=== PATIENT | male | born 1980 ===

== ENCOUNTER → 2020-11-26 13:24 | Outpatient (BNVA) | payer OTHER, SELFPAY | PROVIDERS: PCP Internal Medicine; Visit Provider Internal Medicine Gastroenterology ==

== ENCOUNTER → 2021-06-24 10:05 | Outpatient (BNVA) | payer OTHER, SELFPAY | PROVIDERS: PCP Internal Medicine; Referring Provider Internal Medicine; Visit Provider Internal Medicine Gastroenterology | DX: R19.4 Change in bowel habit (principal); R13.10 Dysphagia, unspecified | CPT/HCPCS: 99212 ==

== ENCOUNTER 2021-07-16 21:49 | Emergency (ER) | payer OTHER, SELFPAY ==
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
[2021-07-16 21:51] VITALS: BP 138/80; PULSE 83; O2SAT 99
[2021-07-16 22:20] VITALS: BP 145/76; PULSE 86; RESP 18; TEMP 36.6; O2SAT 98; BMI 28.0
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
[2021-07-17] MEDS: Ketorolac Tromethamine 60 MG/2 ML VIAL IM (02:53)
[2021-07-17] MEDS: Cyclobenzaprine HCl 10 MG TABLET PO (03:11)
== END 2021-07-17 03:12 | disposition home or self-care (01) ==
PROVIDERS: Emergency Provider Emergency Medicine; PCP Internal Medicine
DX: S39.012A Strain of muscle, fascia and tendon of lower back, initial encounter (principal); S16.1XXA Strain of muscle, fascia and tendon at neck level, initial encounter; V43.52XA Car driver injured in collision with other type car in traffic accident, initial encounter; Y93.89 Activity, other specified; Y92.414 Local residential or business street as the place of occurrence of the external cause; Y99.8 Other external cause status
CPT/HCPCS: 72040; 72100; 96372; 99284; J1885

== ENCOUNTER → 2021-09-19 10:32 | Outpatient (BNVA) | payer OTHER, SELFPAY | PROVIDERS: PCP Internal Medicine; Visit Provider Surgery | DX: R13.10 Dysphagia, unspecified (principal); F17.210 Nicotine dependence, cigarettes, uncomplicated; Z79.899 Other long term (current) drug therapy; Z71.6 Tobacco abuse counseling | CPT/HCPCS: 99212 ==

== ENCOUNTER 2021-10-08 15:17 | Outpatient (REF) | payer OTHER, SELFPAY ==
--- NOTE | ~2021-10-08 | CT_ITS ---
EXAMINATION: CT CHEST WITHOUT CONTRAST CLINICAL INFORMATION: Dysphagia, unspecified COMPARISON: Chest CT 09/08/2016 TECHNIQUE: Multidetector volumetric CT imaging of the chest was done. Axial MIP volume rendering provided. Sagittal and coronal reformatted images were obtained. This CT examination was performed using dose optimization techniques as appropriate, variously including the following: *Automated exposure control *Adjustment of mA and/or kV according to patient size (this includes techniques or standardized protocols for targeted exams where dose is matched to indication/reason for exam; i.e. extremities or head) *Use of iterative reconstruction technique DLP: 175 mGy-cm FINDINGS: LUNGS: The lungs are clear with no evidence of inflammation or nodules. MEDIASTINUM: The mediastinum is normal. PLEURA: There is no pleural effusion. No pleural mass or thickening. AXILLA: No lymphadenopathy. UPPER ABDOMEN: Unremarkable. OSSEOUS STRUCTURES: Unremarkable. CT/CT chest wo con IMPRESSION: Unremarkable examination. Fleischner guidelines were followed.
== END 2021-10-08 15:18 | disposition home or self-care (01) ==
LOC: HO.CT 15:17
PROVIDERS: PCP Internal Medicine; Visit Provider Surgery
DX: R13.10 Dysphagia, unspecified (principal)
CPT/HCPCS: 71250

== ENCOUNTER → 2021-10-24 09:20 | Outpatient (BNVA) | payer OTHER, SELFPAY | PROVIDERS: PCP Internal Medicine; Visit Provider Surgery | DX: Z13.89 Encounter for screening for other disorder (principal) ==

== ENCOUNTER 2021-11-28 10:17 | Outpatient (REF) | payer OTHER, SELFPAY ==
--- NOTE | ~2021-11-28 | FL_ITS ---
EXAMINATION: FL BARIUM SWALLOW CLINICAL INFORMATION: Dysphagia COMPARISON: 07/27/2017 TECHNIQUE: Barium swallow examination is performed using fluoroscopic evaluation in addition to multiple fluoroscopic spot views. The patient is imaged both upright and prone and using both thick and thin sulfate along with effervescent granules. Fluoroscopy time: 1.2 minutes DAP: 6.907 Gycm2 Images: 73 FINDINGS: There is normal oral bolus control and transfer. Normal posterior tilt of the epiglottis with elevation of the hyoid. No cricopharyngeal abnormality. 13 mm barium tablet was swallowed without difficulty. This freely passed through the esophagus into the stomach without delay. The esophagus was normal in course, caliber, and contour. There was normal distensibility with no fixed segment of narrowing. No focal mucosal abnormality was identified. No significant esophageal dysmotility was observed. Contrast passed freely across the gastroesophageal junction into the stomach. There may be a tiny sliding hiatal hernia, though this may be within normal limits of function. Mild gastroesophageal reflux was observed. FL/FL barium swallow IMPRESSION: Normal appearance of the esophagus. There may be a tiny sliding hiatal hernia. Mild gastroesophageal reflux noted.
== END 2021-11-28 10:18 | disposition home or self-care (01) ==
LOC: HO.XRAY 10:17
PROVIDERS: Visit Provider Surgery
DX: R13.10 Dysphagia, unspecified (principal)
CPT/HCPCS: 74220

== ENCOUNTER → 2021-12-05 10:28 | Outpatient (BNVA) | payer OTHER, SELFPAY | PROVIDERS: PCP Internal Medicine; Visit Provider Surgery | DX: K22.0 Achalasia of cardia (principal) | CPT/HCPCS: 99212 ==

== ENCOUNTER 2022-02-04 20:41 | Emergency (ER) | payer OTHER, SELFPAY ==
--- NOTE | ~2022-02-04 | CT_ITS ---
EXAMINATION: CT CHEST WITH CONTRAST CT ABDOMEN AND PELVIS WITH CONTRAST CLINICAL INFORMATION: Abdominal pain and distention. 6 days postoperative. COMPARISON: 10/08/2021 and 09/11/2019 TECHNIQUE: Multidetector volumetric imaging was performed through the chest, abdomen and pelvis following the administration of 100 mL of Omnipaque 350 intravenous contrast. Sagittal and coronal reformatted images were obtained on the technologist's workstation. Axial MIP volume rendering provided. This CT examination was performed using dose optimization techniques as appropriate, variously including the following: *Automated exposure control *Adjustment of mA and/or kV according to patient size (this includes techniques or standardized protocols for targeted exams where dose is matched to indication/reason for exam; i.e. extremities or head) *Use of iterative reconstruction technique DLP: 902 mGy-cm. FINDINGS: CHEST: Lungs: The central airways are patent. Dependent atelectasis. No dense consolidation. No pleural effusion or pneumothorax. Mild paraseptal emphysema noted at the lung apices. Mediastinum: The heart is of normal size.There is gas seen within the mediastinum anteriorly, likely postoperative in nature. There is no pericardial effusion. Central vascular structures are unremarkable. No hilar or mediastinal lymphadenopathy. Mild wall thickening of the esophagus. Chest Wall/Axilla: No lymphadenopathy. No chest wall mass. ABDOMEN/PELVIS: Liver, Gallbladder, Biliary Tree: The liver is normal in size, shape, and attenuation. No biliary ductal dilatation. Multiple hypoattenuating lesions are again noted in the liver. The largest of these have peripheral nodular enhancement, consistent with the appearance of hemangiomas.. The gallbladder is unremarkable with no evidence of radiopaque gallstones, gallbladder wall thickening, or pericholecystic inflammatory changes. Pancreas: Unremarkable. Spleen: Unremarkable. Adrenal Glands: Unremarkable. Kidneys and Ureters: The kidneys are normal in size, shape, and attenuation. No hydronephrosis, hydroureter or calculi seen. No perinephric stranding. Simple cyst at the upper pole of the left kidney. No follow-up imaging recommended. Bladder: Unremarkable. Gastrointestinal Tract: The stomach is unremarkable. Normal caliber small bowel. No obstruction. No colonic wall thickening or inflammatory change. Fecalization of the distal ileum noted. This suggests slow transit. The appendix is unremarkable. Abdominal Wall: No hernia is demonstrated. Lymphovascular Structures: Lymph nodes: Normal. Vascular: Unremarkable. Pelvic Viscera: The prostate and seminal vesicles are unremarkable. OSSEOUS STRUCTURES: No suspicious sclerotic or lytic bone lesions are identified. Disc spacer at L5-S1. CT/CT abdomen pelvis w con IMPRESSION: 1. Postoperative changes in the chest with gas in the anterior mediastinum. No fluid collection. 2. No acute findings in the lungs. 3. No acute findings in the abdomen or pelvis. No inflammatory changes. No obstruction. The bowel is normal in caliber.
[2022-02-04 20:51] VITALS: BP 120/78; PULSE 92; O2SAT 96
[2022-02-04 21:00] VITALS: BP 121/86; PULSE 85; RESP 18; TEMP 36.8; O2SAT 98; BMI 28.0
[2022-02-04 23:55] LABS: MANUAL DIFF FLAG NO
[2022-02-04 23:57] LABS: Basophils Absolute Auto 0.1 X10*3/uL (0.0-0.2); Basophils Percent Auto 0.4 % (0-2); Eosinophils Absolute Auto 0.3 X10*3/uL (0.0-0.4); Eosinophils Percent Auto 2.7 % (0-4); Hematocrit 39.9 % (42.0-52.0); Hemoglobin 13.3 g/dl (14.0-18.0); Imm Gran Abs Auto 0.15 X10*3/uL (0.00-0.03); Imm Gran Pct Auto 1.3 % (0.0-0.4); Lymphocytes Absolute Auto 3.3 X10*3/uL (1.2-4.9); Lymphocytes Percent Auto 28.3 % (20-40); Mean Corpuscular HGB Conc 33.3 g/dl (31.0-36.0); Mean Corpuscular Hemoglobin 31.1 pg (27.0-33.0); Mean Corpuscular Volume 93.2 fL (80.0-98.0); Mean Platelet Volume 9.9 fL (9.4-12.4); Monocytes Absolute Auto 0.9 X10*3/uL (0.1-1.2); Monocytes Percent Auto 7.3 % (2-11); Platelet Count 294 X10*3/uL (160-400); Red Blood Count 4.28 X10*6/uL (4.60-5.80); Red Cell Distribution Width 13.3 % (11.0-16.0); White Blood Count 11.7 X10*3/uL (4.8-10.8)
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
[2022-02-05 00:07] VITALS: BP 119/77; PULSE 76; RESP 13; O2SAT 97
[2022-02-05] MEDS: ondansetron HCL 4 MG/2 ML VIAL IVPUSH (00:11)
[2022-02-05] MEDS: Morphine Sulfate 4 MG/ML CARTRIDGE IVPUSH (00:11)
[2022-02-05 00:13] LABS: Alanine Aminotransferase 64 U/L (0-40); Albumin Level 4.3 g/dL (3.5-5.0); Alkaline Phosphatase 71 U/L (39-117); Anion Gap 11 (12-20); Aspartate Amino Transferase 18 U/L (5-37); Bilirubin Total 0.3 mg/dL (0.0-1.0); Blood Urea Nitrogen 17 mg/dL (9-16); Calcium 9.4 mg/dL (8.4-10.2); Carbon Dioxide 28 mmol/L (22-29); Chloride 102 mmol/L (96-108); Creatinine Clr Calc Pharmacy 131.1; Estimated Glomerular Filt Rate > 60; Glucose Random 117 mg/dL (60-115); Potassium 4.4 mmol/L (3.3-5.1); Sodium 137 mmol/L (135-145); Total Protein 7.2 g/dL (6.5-8.0)
[2022-02-05 02:00] VITALS: BP 119/65; PULSE 67; RESP 14; TEMP 36.3; O2SAT 97
[2022-02-05] MEDS: iohexoL 350 MG/ML 100 ML INFUS..BTL 99 ML IV (02:10)
[2022-02-05 03:49] VITALS: BP 108/57; PULSE 54; RESP 12; O2SAT 95
== END 2022-02-05 04:05 | disposition home or self-care (01) ==
PROVIDERS: Emergency Provider Emergency Medicine
DX: S39.91XA Unspecified injury of abdomen, initial encounter (principal); S30.1XXA Contusion of abdominal wall, initial encounter; R14.0 Abdominal distension (gaseous); M54.6 Pain in thoracic spine; F17.200 Nicotine dependence, unspecified, uncomplicated; V43.52XA Car driver injured in collision with other type car in traffic accident, initial encounter; Y93.9 Activity, unspecified; Y92.410 Unspecified street and highway as the place of occurrence of the external cause; Y99.9 Unspecified external cause status; Z79.899 Other long term (current) drug therapy; Z71.6 Tobacco abuse counseling
CPT/HCPCS: 36415; 71260; 74177; 80053; 85025; 96374; 96375; 99284; J2270; J2405; Q9967

== ENCOUNTER 2022-08-19 09:08 | Outpatient (REF) | payer OTHER, SELFPAY ==
[2022-08-19 09:18] LABS: MANUAL DIFF FLAG NO
[2022-08-19 09:43] LABS: Basophils Absolute Auto 0.1 X10*3/uL (0.0-0.2); Eosinophils Absolute Auto 0.2 X10*3/uL (0.0-0.4); Eosinophils Percent Auto 3.1 % (0-4); Hematocrit 43.7 % (42.0-52.0); Hemoglobin 14.3 g/dl (14.0-18.0); Imm Gran Abs Auto 0.06 X10*3/uL (0.00-0.03); Imm Gran Pct Auto 0.8 % (0.0-0.4); Lymphocytes Absolute Auto 2.9 X10*3/uL (1.2-4.9); Lymphocytes Percent Auto 37.8 % (20-40); Mean Corpuscular HGB Conc 32.7 g/dl (31.0-36.0); Mean Corpuscular Hemoglobin 30.4 pg (27.0-33.0); Mean Corpuscular Volume 92.8 fL (80.0-98.0); Mean Platelet Volume 10.5 fL (9.4-12.4); Monocytes Absolute Auto 0.6 X10*3/uL (0.1-1.2); Monocytes Percent Auto 8.3 % (2-11); Neutrophils Absolute Auto 3.7 x10*3/uL (2.0-8.3); Platelet Count 292 X10*3/uL (160-400); Red Blood Count 4.71 X10*6/uL (4.60-5.80); Red Cell Distribution Width 13.2 % (11.0-16.0); White Blood Count 7.6 X10*3/uL (4.8-10.8)
[2022-08-19 09:50] LABS: Appearance Urine Clear; Color Urine Yellow; Glucose Urine UA Negative (Negative); Leukocyte Esterase Urine Negative (Negative); Nitrite Urine Negative (Negative); PH 5.5 (5.0-9.0); Specific Gravity - Urine 1.025 (1.005-1.025); Urine Blood Negative (Negative); Urine Ketones Negative (Negative); Urine Protein Negative (Neg-Trace)
[2022-08-19 10:24] LABS: Alanine Aminotransferase 30 U/L (0-40); Albumin Level 4.2 g/dL (3.5-5.0); Alkaline Phosphatase 67 U/L (39-117); Anion Gap 10 (12-20); Aspartate Amino Transferase 18 U/L (5-37); Bilirubin Total 0.3 mg/dL (0.0-1.0); Blood Urea Nitrogen 9 mg/dL (9-16); Calcium 9.5 mg/dL (8.4-10.2); Carbon Dioxide 31 mmol/L (22-29); Chloride 103 mmol/L (96-108); Cholesterol 207 mg/dL; Estimated Glomerular Filt Rate > 60; Glucose Fasting 120 mg/dL (60-99); HDL Cholesterol 34 mg/dL; LDL Cholesterol Calculated 133 mg/dl; Potassium 4.5 mmol/L (3.3-5.1); Sodium 139 mmol/L (135-145); Total Protein 6.9 g/dL (6.5-8.0); Triglycerides 200 mg/dL
[2022-08-19 10:41] LABS: TSH reflex Free T4 0.71 uIU/mL (0.32-4.0); Vitamin D 25-OH Total 16.3 ng/mL (>30)
== END 2022-08-19 09:09 | disposition home or self-care (01) ==
LOC: HO.LAB 09:08
PROVIDERS: PCP Internal Medicine; Visit Provider Internal Medicine
DX: K22.0 Achalasia of cardia (principal); R30.0 Dysuria; E78.00 Pure hypercholesterolemia, unspecified; E55.9 Vitamin D deficiency, unspecified
CPT/HCPCS: 36415; 80053; 80061; 81003; 82306; 84443; 85025

== ENCOUNTER 2023-04-17 22:15 | Emergency (ER) | payer OTHER, SELFPAY ==
[2023-04-17 22:31] VITALS: BP 132/60; PULSE 77; RESP 18; TEMP 36.8; O2SAT 95; BMI 24.4
--- NOTE | 2023-04-18 00:12 | MHC.EDTECH ---
patient blood drawn and sent to lab .
[2023-04-18 00:18] LABS: Hematocrit 40.6 % (42.0-52.0); Hemoglobin 13.6 g/dl (14.0-18.0); Mean Corpuscular HGB Conc 33.5 g/dl (31.0-36.0); Mean Corpuscular Hemoglobin 30.1 pg (27.0-33.0); Mean Corpuscular Volume 89.8 fL (80.0-98.0); Mean Platelet Volume 9.8 fL (9.4-12.4); Platelet Count 262 X10*3/uL (160-400); Red Blood Count 4.52 X10*6/uL (4.60-5.80); Red Cell Distribution Width 13.2 % (11.0-16.0); White Blood Count 9.3 X10*3/uL (4.8-10.8)
[2023-04-18 00:36] LABS: Alanine Aminotransferase 20 U/L (0-40); Albumin Level 4.3 g/dL (3.5-5.0); Alkaline Phosphatase 58 U/L (39-117); Anion Gap 14 (12-20); Aspartate Amino Transferase 18 U/L (5-37); Bilirubin Total 0.2 mg/dL (0.0-1.0); Blood Urea Nitrogen 14 mg/dL (9-16); Calcium 9.7 mg/dL (8.4-10.2); Carbon Dioxide 28 mmol/L (22-29); Chloride 102 mmol/L (96-108); Creatinine Clr Calc Pharmacy 108.1; Estimated Glomerular Filt Rate > 60; Glucose Random 120 mg/dL (60-115); Potassium 4.5 mmol/L (3.3-5.1); Sodium 139 mmol/L (135-145); Total Protein 7.1 g/dL (6.5-8.0)
[2023-04-18 01:44] VITALS: BP 137/68; PULSE 87; RESP 16; TEMP 36.9; O2SAT 98
[2023-04-18] MEDS: Lidocaine HCl 1 % MPF 5 ML VIAL INFILTRATI ×2 (03:34)
--- NOTE | 2023-04-18 03:35 | PC.NURSE ---
Lidocaine given by provider to wound site at bedside.
--- NOTE | 2023-04-18 03:58 | ED_ITS ---
HPI - Wound/Laceration General Chief Complaint: Wound/Laceration Stated Complaint: left finger laceration Time Seen by Provider: 04/18/23 03:29 Source: patient Mode of arrival: ambulatory Limitations: no limitations History of Present Illness HPI narrative: 42-year-old male who presents emergency department for evaluation of a laceration to the left 2nd PIP joint. The patient states that he was cutting a pumpkin, slipped and accidentally cut his finger. Patient states that he cord alcohol on the wound, hydrogen peroxide and water to clean it out. He also applied Betadine. He states that since the laceration had numbness to the proximal radial aspect of his index finger. He has had no weakness or difficulty moving his finger. He does not know when his last tetanus shot was given but he believes that it was more than 5 years prior. Related Data Home Medications Medication Instructions Recorded Confirmed duloxetine 60 mg capsule,delayed 60 mg PO DAILY 06/04/20 07/31/22 release miscellaneous medical supply ea miscellaneous 02/13/22 07/31/22 Previous Rx's Medication Instructions Recorded peg-electrolyte solution 420 gram 240 ml PO Q10M #4,000 mL 06/24/21 oral solution (Nulytely Lemon-[place]) cyclobenzaprine 10 mg tablet 10 mg PO TID #10 tabs 07/17/21 SHOWER CHAIR #1 ea 02/13/22 famotidine 40 mg tablet (Pepcid) 40 mg PO BEDTIME #60 tabs 07/31/22 gabapentin 600 mg tablet 600 mg PO TID 30 days #90 tabs 07/31/22 naproxen 500 mg tablet (Naprosyn) 500 mg PO BID #20 tabs 07/31/22 cephalexin 500 mg capsule 500 mg PO QID 5 days #20 caps 04/18/23 Allergies Allergy/AdvReac Type Severity Reaction Status Date / Time No Known Allergies Allergy Mild NOT Verified 07/31/22 15:08 APPLICABLE Review of Systems 2 Review of Systems: Yes all other systems are reviewed and are negative [facility] Past Medical History Medical History Overweight (BMI 25.0-29.9) Smoker GERD without esophagitis Mixed hyperlipidemia Achalasia and cardiospasm GERD (gastroesophageal reflux disease) Surgical History S/P laparoscopic fundoplication (~01/27/22) H/O colonoscopy History of esophagogastroduodenoscopy (EGD) H/O hand surgery H/O wrist surgery History of lumbar discectomy Family History Family History Father No problems noted. Mother Cancer Social History Social History Housing: Apartment Alcohol intake: never Patient Tobacco Use Status: Current everyday Tobacco user Cigarettes Per Day: 8 Smoked in Last 30 Days: No Use of substances other than those prescribed or required for medical reasons: No Advance Directives: No Advance Directives Information Provided: Yes Current occupational status: unemployed Cognitive needs: No Hearing needs: No Vision needs: Yes Physical Exam 2 Vital Signs: Vital Signs: Last Vital Signs Temp 98.4 F 04/18/23 01:44 Pulse 87 04/18/23 01:44 Resp 16 04/18/23 01:44 BP 137/68 04/18/23 01:44 Pulse Ox 98 04/18/23 01:44 O2 Del Method Room Air 04/18/23 01:44 BMI result Body Mass Index 24.4 Vital signs were normal Exam Left hand: There is a 3.0 cm laceration to the left 2nd MCP joint, patient has full range of motion with good strength, he has diminished light touch sensation over the lateral aspect of the proximal phalanx, I did explore the wound I did not see any exposed tendons or other structures, the no foreign bodies found in the wound. Patient's fingers vascularly intact. Medications Administered Discontinued Medications Generic Name Dose Route Start Last Admin Trade Name Freq PRN Reason Stop Dose Admin Lidocaine HCl 5 ml 04/18/23 03:29 04/18/23 03:34 Lidocaine Hcl 1 % Mpf 5 Ml Vial INFILTRATI 04/18/23 03:30 5 ml ONCE ONE Administration Lidocaine HCl 5 ml 04/18/23 03:30 04/18/23 03:34 Lidocaine Hcl 1 % Mpf 5 Ml Vial INFILTRATI 04/18/23 03:31 5 ml ONCE STA Administration Medical Decision Making Medical Decision Making MDM Narrative: 42-year-old male who accidentally cut his left 2nd MCP area while he was cutting into a pumpkin using a knife. The patient did wash the wound out at home. The patient has had no diminished range of motion or decreased strength in his index finger but states that he does have numbness over the lateral aspect of the proximal phalanx. The patient's wound was explored I did not see any major neurovascular structures, or foreign bodies in the wound. The wound was irrigated and closed with 4.0 nylon sutures x6 interrupted sutures. Started prophylactically on Keflex 500 mg 4 times a day for 5 days, patient's 2nd and 3rd fingers were madelyn-taped and was placed in a padded aluminum finger splint in the position of function. I will refer the patient to our hand surgeon for evaluation of possible nerve injury given his numbness. Laboratory evaluation was unremarkable. Differential Diagnosis Differential Diagnoses: The differential diagnosis associated with the presentation includes Differential diagnosis includes was not limited to laceration, vascular injury, nerve injury, tendon injury Admission/Observation Consideration of admission/observation: Escalation of care including admission/observation considered Lab Data MDM Lab Attestation statement: I reviewed the patient's lab results. My interpretation patient's laboratory evaluation is as follows: CBC was normal. Elevated glucose 120. LFTs normal 04/18/23 00:11 04/18/23 00:11 Labs: Lab Results 04/18/23 Range/Units 00:11 WBC 9.3 (4.8-10.8) X10*3/uL RBC 4.52 L (4.60-5.80) X10*6/uL Hgb 13.6 L (14.0-18.0) g/dl Hct 40.6 L (42.0-52.0) % MCV 89.8 (80.0-98.0) fL MCH 30.1 (27.0-33.0) pg MCHC 33.5 (31.0-36.0) g/dl RDW 13.2 (11.0-16.0) % Plt Count 262 (160-400) X10*3/uL MPV 9.8 (9.4-12.4) fL Absolute Nucleated RBC 0.000 (0.0-0.012) X10*3/uL Nucleated RBC % (auto) 0.0 (0.0-0.2) /100WBC Sodium 139 (135-145) mmol/L Potassium 4.5 (3.3-5.1) mmol/L Chloride 102 (96-108) mmol/L Carbon Dioxide 28 (22-29) mmol/L Anion Gap 14 (12-20) BUN 14 (9-16) mg/dL Creatinine 0.90 (0.5-1.4) mg/dL Estim Creat Clear Calc 108.1 Estimated GFR > 60 Random Glucose 120 H (60-115) mg/dL Calcium 9.7 (8.4-10.2) mg/dL Total Bilirubin 0.2 (0.0-1.0) mg/dL AST 18 (5-37) U/L ALT 20 (0-40) U/L Alkaline Phosphatase 58 (39-117) U/L Total Protein 7.1 (6.5-8.0) g/dL Albumin 4.3 (3.5-5.0) g/dL Prescription Management I considered prescription management with: Antibiotic Discharge Plan Discharge Clinical Impression: Tetanus-diphtheria vaccination administered at current visit Laceration of left index finger Qualifiers: Encounter type: initial encounter Damage to nail status: without damage Foreign body presence: without foreign body Qualified Code(s): S61.211A - Laceration without foreign body of left index finger without damage to nail, initial encounter Patient Disposition: Home, Self-Care Additional Instructions: Your blood work was unremarkable I did not see any involvement of the major tendons are nerve caused by the cut to your finger however I am concerned about the numbness in your finger therefore I want you to follow-up with our hand surgeon for re-evaluation in 2-3 days. Keep the splint on until you see the hand surgeon Take Keflex (cephalexin) 500 mg pills, 1 pill 4 times a day for 5 days, this is to try to prevent infection of his laceration Take ibuprofen 200 mg pills, 2 pills every 6 hours as needed for pain or fever. Take Tylenol (acetaminophen) 500 mg pills, 2 pills every 6 hours as needed for pain or fever. Follow-up with with our hand surgeon in 2-3 days, call the office on Wednesday and tell them that you have a cut to your left index finger with numbness of the finger in you need to be re-evaluated. Please return to the emergency department if your symptoms get worse or if you develop any symptoms that are concerning to you. Prescriptions: New cephalexin 500 mg capsule 500 mg PO QID 5 Days Qty: 20 0RF No Action miscellaneous medical supply Misc miscellaneous Rx Instructions: Shower Chair (DME) SHOWER CHAIR See Rx Instructions .Route .MEDSUPPLY Qty: 1 0RF Rx Instructions: As directed cyclobenzaprine 10 mg tablet 10 mg PO TID Qty: 10 0RF duloxetine 60 mg capsule,delayed release(DR/EC) 60 mg PO DAILY famotidine [Pepcid] 40 mg tablet 40 mg PO BEDTIME Qty: 60 1RF naproxen [Naprosyn] 500 mg tablet 500 mg PO BID Qty: 20 0RF gabapentin 600 mg tablet 600 mg PO TID 30 Days Qty: 90 1RF peg-electrolyte soln [Nulytely Lemon-[place]] 420 gram recon soln 240 ml PO Q10M Qty: 4000 0RF Rx Instructions: until fecal effluent is clear, start evening before colonoscopy Referrals: Katherine Ruiz MD [Physician] - 3 days (Left Second MCP laceration with numbness to the proximal phalanx, please evaluate for nerve injury)
[2023-04-18] MEDS: Bacitracin Oint 0.9 GM PACKET 1 APPL TOPICAL ×2 (04:08)
[2023-04-18] MEDS: Diphth,Pertus(ACell),Tet Adult 0.5 ML SYRINGE IM (04:08)
[2023-04-18] MEDS: cephALEXin 500 MG CAPSULE PO (04:26)
== END 2023-04-18 04:30 | disposition home or self-care (01) ==
PROVIDERS: Emergency Provider Emergency Medicine Emergency Medical Services; PCP Internal Medicine
DX: S60.411A Abrasion of left index finger, initial encounter (principal); S61.211A Laceration without foreign body of left index finger without damage to nail, initial encounter; W27.8XXA Contact with other nonpowered hand tool, initial encounter; Y93.9 Activity, unspecified; Y92.9 Unspecified place or not applicable; Y99.9 Unspecified external cause status; Z23 Encounter for immunization; Z79.899 Other long term (current) drug therapy
CPT/HCPCS: 12042; 36415; 80053; 85027; 90471; 90715; 99284

== ENCOUNTER 2023-04-21 09:11 | Outpatient (AMB) | payer OTHER, SELFPAY ==
[2023-04-21 09:38] VITALS: BMI 24.4
--- NOTE | 2023-04-21 09:38 | MHC.OFFVIS ---
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 Patient reports that he was cutting a pumpkin when his hand slipped and accidentally cut his index finger. Currently having a lot of pain making it difficult to sleep at night. States numbness and tingling in finger. He continues taking antibiotic that was prescribed at ED. Finds no relief with motrin. Allergies No Known Allergies Allergy (Mild, Verified 04/21/23 09:49) NOT APPLICABLE HPI cardroom attendant- left finger laceration HPI Details 42-year-old right hand dominant male who presents to the office today for an ED follow-up of left index finger injury s/p cutting a pumpkin when his hand slipped and accidentally cutting his index finger. He states he has chronic pain, numbness and tingling in his finger which makes his difficult to sleep at night. He continues to take antibiotics which was prescribed by the ED. He finds no relief with Motrin. [facility] Medical History Overweight (BMI 25.0-29.9) Smoker GERD without esophagitis Mixed hyperlipidemia Achalasia and cardiospasm GERD (gastroesophageal reflux disease) Surgical History S/P laparoscopic fundoplication (~01/27/22) H/O colonoscopy History of esophagogastroduodenoscopy (EGD) H/O hand surgery H/O wrist surgery History of lumbar discectomy Family History Father No problems noted. Mother Cancer Social History (Updated 04/21/23 @ 09:40 by CAROL Encinas) Housing: Apartment Alcohol intake: never Patient Tobacco Use Status: Current everyday Tobacco user Cigarettes Per Day: 8 Current occupational status: unemployed Current occupation: right hand dominant Cognitive needs: No Hearing needs: No Vision needs: Yes Review of Systems Const All systems reviewed & are unremarkable except as noted in HPI and below Physical Exam Vital Signs: BMI result Body Mass Index 24.4 Const General: cooperative, healthy appearing, comfortable, no acute distress, well developed and alert Orientation/consciousness: patient oriented x3 HEENT Head: Yes normal to inspection, Yes normocephalic and Yes atraumatic Eyes General: appearance normal, both eyes and all related structures Resp Effort & Inspection: normal respiratory effort and able to speak in complete sentences Cardio Rate: regular rate Peripheral pulses: Peripheral pulses 2+ throughout GI Palpation (GI): Soft to palpation Skin Lesions: no lesions Rashes: no rashes Neuro General: patient oriented x3 Extrem Other: Left index finger: Laceration over the MCP joint with sutures intact. He can fully extend and flex the finger. No sensation along the radial 2/3 of the digit extending up to the DIP joint. Radial and ulnar digit nerve sensation intact. Pulses are intact. Assessment & Plan Assessment & Plan (1) Laceration of left index finger: Code(s): S61.211A - Laceration without foreign body of left index finger without damage to nail, initial encounter Qualifiers: Damage to nail status: without damage Encounter type: initial encounter Foreign body presence: without foreign body Qualified Code(s): S61.211A - Laceration without foreign body of left index finger without damage to nail, initial encounter Plan I disc case with Dr. Ruiz. There is no evidence of severe nerve damage that may require surgical intervention. He may continue to experience some numbness along the finger for the next several weeks which will gradually improve. I would like to see him back in 1 week for suture removal and wound check. I did encourage him to work on ROM of his hand and demonstrated this in the office. He is content with this plan and will follow-up as have discussed. Patient Instructions: Scribed for Reece Linton PA-C, by Mitch Aviles bilingual medical receptionist, on 04/21/2023 at 9:15 AM EST. I, Reece Linton PA-C, have personally reviewed and agree with the information entered by the scribe. Coding Level of Care Code New Pt Level 3 (70366) Diagnoses Laceration of left index finger S61.211A Damage to nail status: without damage Encounter type: initial encounter Foreign body presence: without foreign body
== END 2023-04-21 10:14 | disposition home or self-care (01) ==
PROVIDERS: PCP Internal Medicine; Visit Provider Physician Assistant
DX: S61.211A Laceration without foreign body of left index finger without damage to nail, initial encounter (principal)
CPT/HCPCS: 99203

== ENCOUNTER → 2023-04-21 09:11 | Outpatient (BNVA) | payer OTHER, SELFPAY | PROVIDERS: PCP Internal Medicine; Visit Provider Physician Assistant ==

== ENCOUNTER 2023-04-28 13:15 | Outpatient (AMB) | payer OTHER, SELFPAY ==
--- NOTE | 2023-04-28 13:20 | MHC.OFFVIS ---
Intake Vital Signs 04/28/23 13:22 Height 5 ft 10 in Weight 170 lb BMI 24.4 Intake Visit Reasons: OV-left finger suture removal Intake Note: Иван a 42 year old right hand dominant male who presents today for a follow up of left 2nd digit laceration, DOI 04/18/23. Patient reports pain is radiating down to his wrist and into his 4th digit. He has numbness and tingling on the side of his 4th digit. Allergies No Known Allergies Allergy (Mild, Verified 04/28/23 13:21) NOT APPLICABLE HPI OV-left finger suture removal HPI Details 42-year-old right hand dominant male who returns to the office today for a follow-up of left index finger laceration, 04/18/23. He continues to have pain in his finger which radiates into his wrist to 4th digit. He also c/o numbness and tingling on the sides of his 4th digit. [facility] Medical History Overweight (BMI 25.0-29.9) Smoker GERD without esophagitis Mixed hyperlipidemia Achalasia and cardiospasm GERD (gastroesophageal reflux disease) Surgical History S/P laparoscopic fundoplication (~01/27/22) H/O colonoscopy History of esophagogastroduodenoscopy (EGD) H/O hand surgery H/O wrist surgery History of lumbar discectomy Family History Father No problems noted. Mother Cancer Social History Housing: Apartment Alcohol intake: never Patient Tobacco Use Status: Current everyday Tobacco user Cigarettes Per Day: 8 Current occupational status: unemployed Current occupation: right hand dominant Cognitive needs: No Hearing needs: No Vision needs: Yes Review of Systems Const All systems reviewed & are unremarkable except as noted in HPI and below Physical Exam Vital Signs: BMI result Body Mass Index 24.4 Extrem Other: Left index finger: Incision clean, dry and intact. Sutures intact. He can extend all the digits and make a closed fist. NVI. Assessment & Plan Assessment & Plan (1) Laceration of left index finger: Code(s): S61.211A - Laceration without foreign body of left index finger without damage to nail, initial encounter Qualifiers: Damage to nail status: without damage Encounter type: initial encounter Foreign body presence: without foreign body Qualified Code(s): S61.211A - Laceration without foreign body of left index finger without damage to nail, initial encounter Plan Sutures removed today. I did go over some hand exercises to improve his ROM and explained to him that he can work on some scar tissue massage on that area to decrease the sensitivity to touch. Over the next few weeks if he develops any difficulty with motion or any worsening pain, he contact the office, otherwise he will follow-up as needed. Patient Instructions: Scribed for Reece Linton PA-C, by Mitch Aviles medical staff assistant, on 04/28/2023 at 1:15 PM Reece LEÓN PA-C, have personally reviewed and agree with the information entered by the scribe. Coding Level of Care Code Est Pt Level 3 (86854) Diagnoses Laceration of left index finger S61.211A Damage to nail status: without damage Encounter type: initial encounter Foreign body presence: without foreign body
[2023-04-28 13:22] VITALS: BMI 24.4
== END 2023-04-28 13:32 | disposition home or self-care (01) ==
PROVIDERS: PCP Internal Medicine; Visit Provider Physician Assistant
DX: S61.211A Laceration without foreign body of left index finger without damage to nail, initial encounter (principal)
CPT/HCPCS: 99213

== ENCOUNTER → 2023-04-28 13:15 | Outpatient (BNVA) | payer OTHER, SELFPAY | PROVIDERS: PCP Internal Medicine; Visit Provider Physician Assistant | DX: S61.211D Laceration without foreign body of left index finger without damage to nail, subsequent encounter (principal) | CPT/HCPCS: 99212 ==

== ENCOUNTER 2024-08-09 09:21 | Emergency (ER) | payer OTHER, SELFPAY ==
[2024-08-09 09:24] VITALS: BP 135/87; PULSE 80; RESP 16; TEMP 36.6; O2SAT 99; BMI 25.1
[2024-08-09 09:37] LABS: MANUAL DIFF FLAG NO
[2024-08-09 09:39] LABS: Basophils Absolute Auto 0.1 X10*3/uL (0.0-0.2); Basophils Percent Auto 1.1 % (0-2); Eosinophils Absolute Auto 0.6 X10*3/uL (0.0-0.4); Hematocrit 39.7 % (42.0-52.0); Hemoglobin 13.4 g/dl (14.0-18.0); Imm Gran Abs Auto 0.05 X10*3/uL (0.00-0.03); Imm Gran Pct Auto 0.5 % (0.0-0.4); Lymphocytes Absolute Auto 2.9 X10*3/uL (1.2-4.9); Lymphocytes Percent Auto 31.8 % (20-40); Mean Corpuscular HGB Conc 33.8 g/dl (31.0-36.0); Mean Corpuscular Volume 88.8 fL (80.0-98.0); Mean Platelet Volume 9.7 fL (9.4-12.4); Monocytes Absolute Auto 0.6 X10*3/uL (0.1-1.2); Monocytes Percent Auto 6.9 % (2-11); Neutrophils Absolute Auto 4.9 x10*3/uL (2.0-8.3); Neutrophils Percent Auto 53.7 % (45-73); Platelet Count 334 X10*3/uL (160-400); Red Blood Count 4.47 X10*6/uL (4.60-5.80); Red Cell Distribution Width 12.9 % (11.0-16.0); White Blood Count 9.2 X10*3/uL (4.8-10.8)
--- NOTE | 2024-08-09 09:51 | ED.GENADULT ---
HPI - General Adult General Chief complaint: Skin/Abscess/Foreign Body Stated complaint: Infection L Arm Time Seen by Provider: 08/09/24 09:50 Source: patient, RN notes reviewed and old records reviewed Mode of arrival: ambulatory Limitations: no limitations History of Present Illness ED Provider: Savannah HPI narrative: Patient is a 44-year-old male presenting to the emergency department with complaint abscess to his right antecubital area. He reports that he recently began using IV drugs and is injecting in this area. Denies fevers, chills, body aches. Reports purulent drainage from area. States swelling was previously worse, has improved slightly. Denies any weakness, numbness, tingling to arm. Denies decreased ROM. MD complaint: abscess Onset (ago): day(s) Location: right and upper extremity Treatments prior to arrival: none Related Data Home Medications ?Medication ?Instructions ?Recorded ?Confirmed duloxetine 60 mg capsule,delayed 60 mg PO DAILY 06/04/20 07/31/22 release miscellaneous medical supply ea miscellaneous 02/13/22 07/31/22 Previous Rx's ?Medication ?Instructions ?Recorded peg-electrolyte solution 420 gram 240 ml PO Q10M #4,000 mL 06/24/21 oral solution (Nulytely Lemon[place]) SHOWER CHAIR #1 ea 02/13/22 famotidine 40 mg tablet (Pepcid) 40 mg PO BEDTIME #60 tabs 07/31/22 gabapentin 600 mg tablet 600 mg PO TID 30 days #90 tabs 07/31/22 naproxen 500 mg tablet (Naprosyn) 500 mg PO BID #20 tabs 07/31/22 cephalexin 500 mg capsule 500 mg PO QID 5 days #20 caps 04/18/23 cephalexin 500 mg capsule 500 mg PO QID 7 days #28 caps 08/09/24 doxycycline hyclate 100 mg capsule 100 mg PO BID #14 caps 08/09/24 sulfamethoxazole 800 1 tab PO BID 7 days #14 tabs 08/13/24 mg-trimethoprim 160 mg tablet (Bactrim DS) Allergies Allergy/AdvReac Type Severity Reaction Status Date / Time No Known Allergies Allergy Mild NOT Verified 08/09/24 09:25 APPLICABLE Review of Systems Review of Systems: As per HPI Yes all other systems are reviewed and are negative Constitutional: Constitutional: Reports as per HPI PMFSH Past Medical History Medical History Overweight (BMI 25.0-29.9) Smoker GERD without esophagitis Mixed hyperlipidemia Achalasia and cardiospasm GERD (gastroesophageal reflux disease) Surgical History S/P laparoscopic fundoplication (~01/27/22) H/O colonoscopy History of esophagogastroduodenoscopy (EGD) H/O hand surgery H/O wrist surgery History of lumbar discectomy Family History Family History Father No problems noted. Mother Cancer Social History Social History Housing: Apartment Alcohol intake: never Patient Tobacco Use Status: Current everyday Tobacco user Cigarettes Per Day: 8 Advance Directives: No Advance Directives Information Provided: Yes Do you have a plan to hurt others: No Plan Current occupational status: unemployed Current occupation: right hand dominant Cognitive needs: No Hearing needs: No Vision needs: Yes Physical Exam ED Vital Signs: Vital Signs - 24 hr 08/09/24 09:24 Temperature 97.9 F Pulse Rate 80 Respiratory Rate 16 Blood Pressure 135/87 Pulse Oximetry 99 Oxygen Delivery Method Room Air BMI result Body Mass Index 25.1 Vital signs have been reviewed and appear to be correct. Blood pressure normal. Heart rate normal. Respiratory rate normal. Temperature normal. Oxygen saturation normal. Const General: cooperative, healthy appearing and no acute distress Orientation/consciousness: oriented to person, oriented to place, oriented to time and patient oriented x3 Limitations: no limitations [facility] Head: Yes normocephalic and Yes atraumatic Ears: external ears normal General nose exam: Normal external nose present Face and sinus: Yes face symmetric Mouth: oropharynx normal and moist mucous membranes Throat: Yes uvula midline Eyes Pupils: Equal, round and reactive pupils present Neck Neck: Yes normal visual inspection and Yes supple Resp Effort & Inspection: normal respiratory effort and able to speak in complete sentences Auscultation: clear to auscultation bilaterally Cardio Rate: regular rate Rhythm: regular rhythm Heart sounds: S1 normal heart sound present and S2 normal heart sound present GI Palpation (GI): Soft to palpation and nontender Auscultation: normoactive bowel sounds General: Yes no CVA tenderness Back/Spine/Pelvis Back: no CVA tenderness Skin General skin exam: elasticity normal and turgor normal Neuro General: oriented to person, oriented to place, oriented to time, patient oriented x3, moves all extremities, no focal motor deficits and CN's II-XI intact bilaterally Cranial nerves: Yes Equal, round and reactive pupils present Cognition (Neuro): normal cognition Extrem General: Yes full ROM, Yes no pedal edema and Yes no calf tenderness Right upper extremity: elbow/forearm Details: normal ROM and distal pulses intact; no swelling Elbow/forearm/wrist images: 1. 1cm abscess spontaneously draining purulent discharge Psych Mental Status: mental status grossly normal Affect: normal affect Thought process: Normal thought process present Course Course Course Narrative: 08/13/24 0925 -- Gram stain/culture grew MRSA, sensitive to clindamycin, Bactrim, vancomycin. Resistant to erythromycin, oxacillin, penicillin, tetracycline. Patient was discharged on Keflex and doxy. Called patient to discuss results. Advised to discontinue Keflex/doxycycline. Bactrim sent to pharmacy for treatment. Discussed worrisome signs and symptoms of when to return to the ED. Patient verbalizes understanding. - Naomi Medical Decision Making Medical Decision Making [facility] Narrative: Patient is a 44-year-old male presenting to the emergency department with complaint abscess to his right antecubital area. On exam patient is awake, A+Ox3, VS WNL, afebrile, normal neurological exam without focal deficits, physical exam findings as above. Given reported symptoms and physical exam findings, initial differential includes but is not limited to abscess, cellulitis. Do not suspect septic joint as patient is afebrile, has full ROM. Labs notable for no leukocytosis. Wound culture obtained. Will treat patient with course of doxy and Keflex. Advised patient to monitor the area daily and return for worsening symptoms. Advised patient to avoid injecting into the infected area. Will also refer patient to [facility]. Return precautions discussed. Patient verbalized understanding of and agreement with plan. Differential Diagnosis Differential Diagnoses: The differential diagnosis associated with the presentation includes As per [facility] Lab Data [facility] Lab Attestation statement: I reviewed the patient's lab results. As per [facility] 08/09/24 09:34 08/09/24 09:34 Labs: Lab Results 08/09/24 Range/Units 09:34 WBC 9.2 (4.8-10.8) X10*3/uL RBC 4.47 L (4.60-5.80) X10*6/uL Hgb 13.4 L (14.0-18.0) g/dl Hct 39.7 L (42.0-52.0) % MCV 88.8 (80.0-98.0) fL MCH 30.0 (27.0-33.0) pg MCHC 33.8 (31.0-36.0) g/dl RDW 12.9 (11.0-16.0) % Plt Count 334 D (160-400) X10*3/uL MPV 9.7 (9.4-12.4) fL Immature Gran % (Auto) 0.5 H (0.0-0.4) % Neut % (Auto) 53.7 (45-73) % Lymph % (Auto) 31.8 (20-40) % [place] % (Auto) 6.9 (2-11) % Eos % (Auto) 6.0 H (0-4) % Baso % (Auto) 1.1 (0-2) % Lymph # (Auto) 2.9 (1.2-4.9) X10*3/uL [place] # (Auto) 0.6 (0.1-1.2) X10*3/uL Eos # (Auto) 0.6 H (0.0-0.4) X10*3/uL Baso # (Auto) 0.1 (0.0-0.2) X10*3/uL Abs Immat Gran (auto) 0.05 H (0.00-0.03) X10*3/uL Absolute Neuts (auto) 4.9 (2.0-8.3) x10*3/uL Absolute Nucleated RBC 0.000 (0.0-0.012) X10*3/uL Nucleated RBC % (auto) 0.0 (0.0-0.2) /100WBC Sodium 140 (135-145) mmol/L Potassium 4.1 (3.3-5.1) mmol/L Chloride 104 (96-108) mmol/L Carbon Dioxide 28 (22-29) mmol/L Anion Gap 12 (12-20) BUN 11 (9-16) mg/dL Creatinine 0.72 (0.5-1.4) mg/dL Estim Creat Clear Calc 132.3 Estimated GFR > 60 Random Glucose 151 H (60-115) mg/dL Calcium 9.0 D (8.4-10.2) mg/dL Total Bilirubin 0.2 (0.0-1.0) mg/dL AST 13 (5-37) U/L ALT 16 (0-40) U/L Alkaline Phosphatase 70 (39-117) U/L Total Protein 7.5 (6.5-8.0) g/dL Albumin 4.2 (3.5-5.0) g/dL External Record Review External record reviewed: Inpatient record, Office record and Outpatient record Prescription Management I considered prescription management with: Antibiotic Discharge Plan Discharge Clinical Impression: Abscess of arm, right Patient Disposition: Home, Self-Care Instructions: Abscess (ED), Abscess Follow-up (ED) Additional Instructions: You were evaluated in the ER for an abscess. Please keep the area surrounding the abscess clean and dry. You were given a prescription for antibiotics, please take the antibiotics as directed for the full course of the medication. You should perform a skin check of the area daily. If the abscess progresses you may have to have the abscess incised and drained. You can use Tylenol or ibuprofen per package directions as needed for pain. If necessary, you can alternate these medications so that you take one medication every 3 hours. For instance, at noon take ibuprofen, then at 3:00 p.m. take Tylenol, then at 6:00 p.m. take ibuprofen. Please schedule an appointment with your primary care physician as soon as possible for follow-up. Return to the emergency department if you experience fevers greater than 100.4? F, increased in area of redness or swelling, increasing amount of discharge from the area, increased tenderness around the area, or any other concerning symptoms. Opiate use disorder You were seen in our Emergency Department today for treatment of symptoms related to opiate use disorder. You may have been dosed with medication for opiate use disorder (MOUD) in the form of suboxone or methadone. You may experience feeling some withdrawal symptoms and this is normal. The? dose in the Emergency Department is a starting dose and meant to be titrated up once you follow up with a clinic. Please do not feel discouraged, it is a process. The nurse has reviewed with you where to follow up and what information to bring with you, to continue treatment. You also may have been given naloxone (narcan) to take home with you. This medication is used to potentially treat opiate overdose. If you decide you want to stop or cut down on how much you?re using, you can call or walk into our outpatient Addiction Treatment office: [facility] (M-F 9am-5p) [address] [place] [address], [address] [phone] You may have been provided with safer injection?items, please take time to take care of YOU and your health. Use new supplies whenever possible to lessen the chances of infections and other illnesses.? ?If you need more supplies, please go [facility]? [address] [place] [address] OR you can call or text to coordinate delivery of safer supplies. You were also provided a list of several treatment providers in the area.? If you experience any worsening symptoms you cannot control please return to the ED or call 911. Please follow up at your next appointment. Things to look out for are fevers, chest pain, shortness of breath, severe pain, dizziness, fainting or any other concerns. Prescriptions: New cephalexin 500 mg capsule 500 mg PO QID 7 Days Qty: 28 0RF doxycycline hyclate 100 mg capsule 100 mg PO BID Qty: 14 0RF sulfamethoxazole-trimethoprim [Bactrim DS] 800-160 mg tablet 1 tab PO BID 7 Days Qty: 14 0RF No Action miscellaneous medical supply Misc miscellaneous Rx Instructions: Shower Chair (DME) SHOWER CHAIR See Rx Instructions .Route .MEDSUPPLY Qty: 1 0RF Rx Instructions: As directed cephalexin 500 mg capsule 500 mg PO QID 5 Days Qty: 20 0RF duloxetine 60 mg capsule,delayed release(DR/EC) 60 mg PO DAILY famotidine [Pepcid] 40 mg tablet 40 mg PO BEDTIME Qty: 60 1RF naproxen [Naprosyn] 500 mg tablet 500 mg PO BID Qty: 20 0RF gabapentin 600 mg tablet 600 mg PO TID 30 Days Qty: 90 1RF peg-electrolyte soln [Nulytely Lemon-[place]] 420 gram recon soln 240 ml PO Q10M Qty: 4000 0RF Rx Instructions: until fecal effluent is clear, start evening before colonoscopy Interventions: ED Discharge Assessment Last Done: 08/09/24 12:05 Discharge Date/Time: 08/09/24 12:06 Print Language: Portuguese
[2024-08-09 09:54] LABS: Alanine Aminotransferase 16 U/L (0-40); Albumin Level 4.2 g/dL (3.5-5.0); Alkaline Phosphatase 70 U/L (39-117); Anion Gap 12 (12-20); Aspartate Amino Transferase 13 U/L (5-37); Bilirubin Total 0.2 mg/dL (0.0-1.0); Blood Urea Nitrogen 11 mg/dL (9-16); Carbon Dioxide 28 mmol/L (22-29); Chloride 104 mmol/L (96-108); Creatinine Clr Calc Pharmacy 132.3; Estimated Glomerular Filt Rate > 60; Glucose Random 151 mg/dL (60-115); Potassium 4.1 mmol/L (3.3-5.1); Sodium 140 mmol/L (135-145); Total Protein 7.5 g/dL (6.5-8.0)
[2024-08-09 12:05] VITALS: BP 135/87; PULSE 80; RESP 16; TEMP 36.6; O2SAT 99
== END 2024-08-09 12:06 | disposition home or self-care (01) ==
PROVIDERS: Emergency Provider Student in an Organized Health Care Education/Training Program; PCP Internal Medicine
DX: L02.413 Cutaneous abscess of right upper limb (principal); F17.210 Nicotine dependence, cigarettes, uncomplicated; Z79.899 Other long term (current) drug therapy
CPT/HCPCS: 36415; 80053; 85025; 87070; 87077; 87186; 87205; 99282; 99283